=== PATIENT | female | born 2000 | race Caucasian/White ===

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

== ENCOUNTER 2022-07-24 23:28 | Emergency (ER) | payer OTHER ==
[2022-07-24] MEDS ORDERED: KETOROLAC 15 MG/ML VIAL IVP STA (23:41)
[2022-07-24] MEDS ORDERED: NS IV 1000 ML 1,000 ML IV STA (23:41)
[2022-07-24 23:50] LABS: CLARITY,URINE CLOUDY; GLUCOSE, URINE (UA) NEGATIVE (NEGATIVE); KETONES,URINE TRACE (NEGATIVE); LEUKOCYTE ESTERASE ,URINE 1+ (NEGATIVE); NITRITE,URINE NEGATIVE (NEGATIVE); PH,URINE 6.5 (5-9); PROTEIN,URINE 1+ (NEGATIVE)
--- NOTE | 2022-07-24 23:50 | ED Abdominal Pain ---
General Chief Complaint: Abdominal/GI Problems Stated Complaint: ABD PAIN Nursing Triage Note: COMPLAINT OF LOWER ABDOMINAL PAIN FOR THE LAST 4-5 DAYS. PATIENT STATES TREATED WITH MACROBID FOR UTI DIAGNOSED 2 DAYS AGO. Source of Information: Patient History of Present Illness Date Seen by Provider: Jul 24, 2022 Time Seen by Provider: 23:31 Initial Comments 21-year-old female presenting with complaints of suprapubic abdominal pain. She states for the last 4 to 5 days she has been having pain in was seen in the clinic on Friday and was diagnosed with a UTI. She started Macrobid yesterday July 23 for her UTI. She felt like the pain was a little worse this evening so she came to the emergency department. She states that she spoke with her mother and her mom wanted her to be seen and have a CT scan looking at her abdomen and pelvis. She states that her last menstrual cycle finished last week but she had some spotting today. She denies nausea, vomiting, fever, chills, abdominal trauma, chest pain, cough, diarrhea. She states she has had some constipation but was taking MiraLAX and that was helping her go some. She denies any allergies to medications. She also denies any previous abdominal surgeries. She states that she does not have any chronic medical problems. Timing/Duration: 4-5 Days (Worse in the last 2 to 3 days and felt that it was more severe tonight) Severity/Quality: Moderate (7 out of 10), Cramping, Sharp Location: Suprapubic Radiation: No Radiation Activities at Onset: None Modifying Factors: Worsens With Movement, Worsens With Palpation Associated Symptoms: No Back Pain, No Chest Pain, No Diaphoresis, No Fever/Chills, No Fatigue, No Headache, No Heartburn, No Nausea/Vomiting, No Rash, No Shortness of Air, No Swelling/Mass in Abdomen, No Syncope, No Weakness Allergies and Home Medications Allergies Coded Allergies: No Known Allergies (Verified Allergy, Unknown, 03/27/21) Patient Home Medication List Home Medication List Reviewed: Yes Metronidazole (Metronidazole) 500 Mg Tablet, 500 MG PO BID Prescribed by: MAURICIO BELTRAN on 07/25/2258 Phenazopyridine HCl (Pyridium) 100 Mg Tablet, 100 MG PO TID Prescribed by: MAURICIO BELTRAN on 07/25/2258 Review of Systems Review of Systems Constitutional: No chills, No fever EENTM: No Symptoms Reported Respiratory: No Symptoms Reported Cardiovascular: No Symptoms Reported Gastrointestinal: See HPI Genitourinary: See HPI Musculoskeletal: no symptoms reported Skin: no symptoms reported Psychiatric/Neurological: Anxiety Past Woabvcq-Ulzfxy-Hrjnoh Hx Past Medical History Surgeries: No Physical Exam Vital Signs Vital Signs - First Documented 07/24/22 23:30 Temp 37.2 Pulse 69 Resp 20 B/P (MAP) 138/86 (103) Pulse Ox 93 O2 Delivery Room Air Capillary Refill : Less Than 3 Seconds Height/Weight/BMI Height: '" Weight: lbs. oz. kg; 21.00 BMI Method: General Appearance: mild distress (Patient appears anxious), thin HEENT: PERRL/EOMI, pharynx normal Neck: non-tender, full range of motion, supple, normal inspection Respiratory: chest non-tender, lungs clear, normal breath sounds, no respiratory distress, no accessory muscle use Cardiovascular: normal peripheral pulses, regular rate, rhythm Gastrointestinal: normal bowel sounds, soft, no pulsatile mass; No distended, No guarding, No rebound; tenderness (Suprapubic tenderness) Rectal: deferred Extremities: normal range of motion, non-tender, normal capillary refill Neurologic/Psychiatric: alert, oriented x 3, other (Anxious) Skin: normal color, warm/dry Progress/Results/Core Measures Results/Orders Lab Results Laboratory Tests Test 07/24/22 23:34 07/24/22 23:42 Range/Units Urine Color REGINA H Urine Clarity CLOUDY Urine pH 6.5 5-9 Urine Specific [place] 1.025 H 1.016-1.022 Urine Protein 1+ H NEGATIVE Urine Glucose (UA) NEGATIVE NEGATIVE Urine Ketones TRACE H NEGATIVE Urine Nitrite NEGATIVE NEGATIVE Urine Bilirubin 1+ H NEGATIVE Urine Urobilinogen 2.0 < = 1.0 MG/DL Urine Leukocyte Esterase 1+ H NEGATIVE Urine RBC (Auto) 3+ H NEGATIVE Urine RBC 2-5 H /HPF Urine WBC 10-25 H /HPF Urine Squamous Epithelial Cells 2-5 /HPF Urine Renal Epithelial Cells RARE /HPF Urine Crystals NONE /LPF Urine Bacteria FEW H /HPF Urine Casts NONE /LPF Urine Mucus LARGE H /LPF Urine Other FEW CLUE CELLS /HPF Urine Culture Indicated YES Urine Opiates Screen NEGATIVE NEGATIVE Urine Oxycodone Screen NEGATIVE NEGATIVE Urine Methadone Screen NEGATIVE NEGATIVE Urine Propoxyphene Screen NEGATIVE NEGATIVE Urine Barbiturates Screen NEGATIVE NEGATIVE Ur Tricyclic Antidepressants Screen NEGATIVE NEGATIVE Urine Phencyclidine Screen NEGATIVE NEGATIVE Urine Amphetamines Screen NEGATIVE NEGATIVE Urine Methamphetamines Screen NEGATIVE NEGATIVE Urine Benzodiazepines Screen NEGATIVE NEGATIVE Urine Cocaine Screen NEGATIVE NEGATIVE Urine Cannabinoids Screen NEGATIVE NEGATIVE White Blood Count 8.0 4.3-11.0 10^3/uL Red Blood Count 4.78 3.80-5.11 10^6/uL Hemoglobin 14.1 11.5-16.0 g/dL Hematocrit 41 35-52 % Mean Corpuscular Volume 86 80-99 fL Mean Corpuscular Hemoglobin 30 25-34 pg Mean Corpuscular Hemoglobin Concent 34 32-36 g/dL Red Cell Distribution Width 11.8 10.0-14.5 % Platelet Count 215 130-400 10^3/uL Mean Platelet Volume 11.5 9.0-12.2 fL Immature Granulocyte % (Auto) 0 % Neutrophils (%) (Auto) 51 42-75 % Lymphocytes (%) (Auto) 34 12-44 % Monocytes (%) (Auto) 8 0-12 % Eosinophils (%) (Auto) 7 0-10 % Basophils (%) (Auto) 1 0-10 % Neutrophils # (Auto) 4.0 1.8-7.8 10^3/uL Lymphocytes # (Auto) 2.7 1.0-4.0 10^3/uL Monocytes # (Auto) 0.6 0.0-1.0 10^3/uL Eosinophils # (Auto) 0.6 H 0.0-0.3 10^3/uL Basophils # (Auto) 0.0 0.0-0.1 10^3/uL Immature Granulocyte # (Auto) 0.0 0.0-0.1 10^3/uL Sodium Level 136 135-145 MMOL/L Potassium Level 3.3 L 3.6-5.0 MMOL/L Chloride Level 100 98-107 MMOL/L Carbon Dioxide Level 26 21-32 MMOL/L Anion Gap 10 5-14 MMOL/L Blood Urea Nitrogen 8 7-18 MG/DL Creatinine 0.71 0.60-1.30 MG/DL Estimat Glomerular Filtration Rate 126 BUN/Creatinine Ratio 11 Glucose Level 90 70-105 MG/DL Calcium Level 9.6 8.5-10.1 MG/DL Corrected Calcium 8.5-10.1 MG/DL Total Bilirubin 0.6 0.1-1.0 MG/DL Aspartate Amino Transf (AST/SGOT) 15 5-34 U/L Alanine Aminotransferase (ALT/SGPT) 16 0-55 U/L Alkaline Phosphatase 77 40-136 U/L Total Protein 7.9 6.4-8.2 GM/DL Albumin 4.6 H 3.2-4.5 GM/DL Lipase 36 8-78 U/L My Orders Orders - MAURICIO BELTRAN MD Ua Culture If Indicated (07/24/22 23:30) Urine Bedside (07/24/22 23:30) Drug Screen Stat (Urine) (07/24/22:30) Comprehensive Metabolic Panel (07/24/22 23:41) Lipase (07/24/22 23:41) Ed Iv/Invasive Line Start (07/24/22 23:41) Cbc With Automated Diff (07/24/22 23:41) Ct Abdomen/Pelvis W (07/24/22 23:41) Ns Iv 1000 Ml (Sodium Chloride 0.9%) (07/24/22 23:41) Ketorolac Injection (Toradol Injection) (07/24/22 23:41) Iohexol Injection (Omnipaque 300 Mg/Ml 1 (07/25/22 00:00) Di Iv Start (Assessment) .IV start (07/24/22 23:46) Received Contrast (Hold Metformin- Contr (07/25/22 00:00) Ns (Ivpb) (Sodium Chloride 0.9% Ivpb Bag (07/25/22 00:00) Urine Culture (07/24/22 23:34) Ceftriaxone 1 Gm Pre-Mix (Rocephin 1 Gm (07/25/22 00:45) Phenazopyridine Tablet (Pyridium Tablet) (07/25/22 00:45) Metronidazole Tablet (Flagyl Tablet) (07/25/22 00:45) Medications Given in ED Current Medications Medications Dose Ordered Sig/Niraj Route Start Time Stop Time Status Last Admin Dose Admin Iohexol 75 ml ONCE ONCE IV 07/25/22 00:00 07/25/22 00:01 DC 07/24/22 23:52 75 ML Sodium Chloride 100 ml ONCE ONCE IV 07/25/22 00:00 07/25/22 00:01 DC 07/24/22 23:52 100 ML Vital Signs/I&O 07/24/22 23:30 Temp 37.2 Pulse 69 Resp 20 B/P (MAP) 138/86 (103) Pulse Ox 93 O2 Delivery Room Air Blood Pressure Mean: 103 Progress Progress Note #1: Progress Note Potential diagnosis of cystitis, pyelonephritis, colitis, diverticulitis, ovarian cyst, ruptured ovarian cyst, ovarian torsion, appendicitis. Obtain urine and test for bedside as well as urinalysis looking for infection and urine drug screen looking for medicines were illicit substances that she might be using the might contribute to her complaint of pain and constipation. Obtain peripheral IV access and send blood work for complete blood count, comprehensive metabolic profile, lipase. Order CT scan of the abdomen and pelvis with IV contrast to further evaluate her complaints of suprapubic pain. Administer normal saline 1 L IV fluid bolus for hydration, Toradol 15 mg IV for pain and inflammation. She might require narcotic pain medicine and she is occasionally complaining of more severe stabbing pain. Progress Note #2: Progress Note Complete blood count does not show any elevation of her white blood cells to indicate a severe infection. Her white blood cell count was 8. She was not showing anemia as her hemoglobin was 14.1. Her urinalysis was still a little concentrated to go along with some dehydration and she had specific gravity of 1.025. She still have 1+ leukocyte esterase with 10-25 white blood cells and bacteria. She also had some clue cells seen on the urinalysis. This would indicate bacterial vaginosis. Her comprehensive metabolic profile did not show any acute significant abnormality to indicate renal failure electrolyte imbalance or liver failure. On my personal interpretation and review of her CT scan of the abdomen and pelvis with IV contrast I did not appreciate any acute obstruction, free air, kidney stone. Progress Note #3: Progress Note I reviewed the radiologist report at 00 19. Radiologist with the [facility] did not see acute surgical findings on CT scan of abdomen/pelvis with IV contrast. Patient had thickened urinary bladder consistent with cystitis. She did have possible thickening of moreno of descending colon, sigmoid colon and rectum but may just be due to under distention. When reviewing results with the patient she states that her pain was completely gone with treatment here in the ED. She was advised that she still needed to finish out the antibiotics to treat for the urinary tract infection and cystitis. We will add on metronidazole or Flagyl to treat for bacterial vaginosis. Also prescribed Pyridium 100 mg p.o. 3 times daily x2 days to help with bladder pain and spasms. Encourage fluids and hydration. Counseled to avoid alcohol while taking the metronidazole to avoid side effects and making herself sick. Counseled on follow-up and return precautions. Advised she could still take cazb-[id number] ibuprofen 600 mg every 6-8 hours as needed for pain and inflammation. Alternatively she could take Aleve or naproxen 2 pills twice a day for pain and inflammation. She could still take acetaminophen 650 mg p.o. every 6 hours as needed pain as it works differently than the anti-inflammatory medicines. Diagnostic Imaging Diagonstic Imaging: CT Plain Films/CT/US/NM/MRI: abdomen, pelvis Comments CT scan of the abdomen pelvis with IV contrast. Impression: There may be thickening of the wall of the bladder. This can be seen with cystitis. There may be thickening of the moreno of the descending colon, sigmoid colon, and rectum. This may be due to underdistention. Cannot exclude a nonspecific colitis. Read by radiologist Dr. Abdiel Hilario MD at 0010 and faxed at 0017 Reviewed: [facility], Reviewed by Me (I reviewed the radiologist report at 0019) Departure Impression Primary Impression: Suprapubic pain, acute Additional Impressions: Acute cystitis with hematuria Bacterial vaginosis Disposition: HOME, SELF-CARE Condition: Improved Departure-Patient Inst. Decision time for Depature: 00:55 Referrals: NO,LOCAL PHYSICIAN (PCP) Primary Care Physician [facility] Patient Instructions: Bacterial Vaginosis ED, Urinary Tract Infection, Adult ED Add. Discharge Instructions: Stay well-hydrated and drink plenty of fluids. Finish out the course of antibiotics to treat for the bladder infection. Also take the Flagyl or metronidazole antibiotic for the next 7 days to treat for the bacterial overgrowth or bacterial vaginosis. The Pyridium is a prescription medicine similar to Azo pkmb-szu-[id number]. You could take the Pyridium as prescribed for the next 2 days to try and help with bladder pain while the antibiotics are kicking in. Alternatively you could take [id number]-[id number] Azo to help with those symptoms. Avoid any alcohol use while taking the Flagyl or metronidazole as alcohol will interact with the antibiotic and make you had nausea and vomiting and be sick. Follow-up with the clinic for continued pain and concerns. You could continue to take ibuprofen 600 mg or 3 jmrl-pri-wqdwivo 200 mg pills every 6-8 hours as needed for pain and inflammation. Alternatively you can take naproxen or Aleve 2 pills twice a day to help with your pain. You may also take acetaminophen 650 mg every 6 hours as needed for pain. All discharge instructions reviewed with patient and/or family. Voiced understanding. Scripts Metronidazole (Metronidazole) 500 Mg Tablet 500 MG PO BID for Bacterial Vaginosis for 7 Days, #14 TAB 0 Refills Prov: MAURICIO BELTRAN MD 07/25/22 Phenazopyridine HCl (Pyridium) 100 Mg Tablet 100 MG PO TID for Bladder pain for 2 Days, #6 TAB 0 Refills Prov: MAURICIO BELTRAN MD 07/25/22 Work/School Note: School/Childcare Release Date Seen in the Emergency Department: Jul 25, 2022 Time Dismissed from Emergency Department: 01:00 Return to School: Jul 29, 2022 Restrictions: Return-No Fever (24hrs), Return-No Vomiting(24hrs) MAURICIO BELTRAN MD Jul 24, 2022 23:50
[2022-07-24 23:59] LABS: BASOPHILS % (AUTO) 1 % (0-10); EOSINOPHILS # (AUTO) 0.6 10^3/uL (0.0-0.3); EOSINOPHILS % (AUTO) 7 % (0-10); HEMATOCRIT 41 % (35-52); HEMOGLOBIN 14.1 g/dL (11.5-16.0); LYMPHOCYTES # (AUTO) 2.7 10^3/uL (1.0-4.0); LYMPHOCYTES % (AUTO) 34 % (12-44); MEAN CORPUSCULAR HEMOGLOBIN 30 pg (25-34); MEAN CORPUSCULAR HGB CONC 34 g/dL (32-36); MEAN CORPUSCULAR VOLUME 86 fL (80-99); MEAN PLATELET VOLUME 11.5 fL (9.0-12.2); MONOCYTES # (AUTO) 0.6 10^3/uL (0.0-1.0); MONOCYTES % (AUTO) 8 % (0-12); NEUTROPHILS % (AUTO) 51 % (42-75); PLATELET COUNT 215 10^3/uL (130-400)
[2022-07-25] MEDS ORDERED: IOHEXOL 300 MG/ML 100 ML (OMNIPAQUE 300) VIAL IV ONE
[2022-07-25] MEDS ORDERED: NS 100 ML (IVPB) BAG IV ONE
[2022-07-25] MEDS ORDERED: HOLD METFORMIN - RECEIVED CONTRAST 20 ML VIAL IV SCH
[2022-07-25 00:09] LABS: BILIRUBIN,URINE 1+ (NEGATIVE); COLOR,URINE AMBER
[2022-07-25 00:10] LABS: BACTERIA,URINE FEW /HPF; RENAL EPITHELIAL CELLS,URINE RARE /HPF
[2022-07-25 00:11] LABS: URINE OTHER FEW CLUE CELLS /HPF
[2022-07-25 00:25] LABS: BENZODIAZEPINES SCREEN URINE NEGATIVE (NEGATIVE); COCAINE SCREEN URINE NEGATIVE (NEGATIVE)
[2022-07-25 00:26] LABS: AMPHETAMINE SCREEN, URINE NEGATIVE (NEGATIVE); BARBITURATE SCREEN URINE NEGATIVE (NEGATIVE); CANNABINOID SCREEN, URINE NEGATIVE (NEGATIVE); METHADONE STAT NEGATIVE (NEGATIVE); OPIATE SCREEN URINE NEGATIVE (NEGATIVE); OXYCODONE STAT NEGATIVE (NEGATIVE); PROPOXYPHENE STAT NEGATIVE (NEGATIVE); TRICYCLIC ANTIDEPRESSANTS SCRE NEGATIVE (NEGATIVE)
[2022-07-25 00:31] LABS: ALKALINE PHOSPHATASE 77 U/L (40-136); BILIRUBIN,TOTAL 0.6 MG/DL (0.1-1.0); BUN/CREATININE RATIO 11; CALCIUM 9.6 MG/DL (8.5-10.1); CARBON DIOXIDE 26 MMOL/L (21-32); CHLORIDE 100 MMOL/L (98-107); CREATININE SERUM 0.71 MG/DL (0.60-1.30); GFR ESTIMATED 126; GLUCOSE 90 MG/DL (70-105); POTASSIUM 3.3 MMOL/L (3.6-5.0); SODIUM 136 MMOL/L (135-145)
[2022-07-25 00:32] LABS: ALANINE AMINOTRANSFERASE 16 U/L (0-55); ALBUMIN 4.6 GM/DL (3.2-4.5); LIPASE 36 U/L (8-78); TOTAL PROTEIN 7.9 GM/DL (6.4-8.2)
[2022-07-25] MEDS ORDERED: metroNIDAZOLE 500 MG (FLAGYL) TAB PO STA (00:45)
[2022-07-25] MEDS ORDERED: PHENAZOPYRIDINE 100 MG (PYRIDIUM) TABLET PO STA (00:45)
[2022-07-25] MEDS ORDERED: cefTRIAXone 1 GM PRE-MIX 50 ML IV STA (00:45)
[2022-07-25] MEDS ORDERED: PHEN-639 PO (00:59)
[2022-07-25] MEDS ORDERED: METR-145 PO (00:59)
[2022-07-25 01:04] VITALS: BP 138/86
--- NOTE | 2022-07-25 06:42 | Diagnostic Imaging Report ---
PROCEDURE: CT abdomen and pelvis with contrast. TECHNIQUE: Multiple contiguous axial images were obtained through the abdomen and pelvis after administration of intravenous contrast. Auto Exposure Controls were utilized during the CT exam to meet ALARA standards for radiation dose reduction. All CT scans use one or more of the following dose optimizing techniques: automated exposure control, MA and/or KvP adjustment based on patient size and exam type or iterative reconstruction. INDICATION: 21-year-old female presents with suprapubic pain which has been worsening over 2-3 days. Patient is diagnosed with UTI. COMPARISONS: None FINDINGS: Lung bases are clear. Cardiac contour is normal. Liver shows uniform attenuation. Gallbladder, spleen, GE junction, stomach and duodenal sweep are unremarkable. Pancreas shows sharp margins. Adrenals are normal. Kidneys appear normal in size, position, and contour. There is symmetrical perfusion of contrast. There is no hydronephrosis or hydroureter. Both ureters are seen intermittently through their course and appear unremarkable. Bladder is nondistended. Bladder wall is prominent, may be due to nondistention, however, an element of cystitis given the clinical history is not excluded. Uterus and adnexa appear age appropriate. There is bilateral reactive inguinal lymphadenopathy. The largest node is in the left inguinal region measuring approximately 1.5 cm. Nonopacified loops of small bowel are normal. Large bowel contains fecal material and gas but is mostly decompressed. Appendix is unremarkable. Visualized vasculature shows normal caliber of the aorta, iliac and femoral arteries with normal origin of the visceral arteries. There are few scattered tiny mesenteric nodes but no evidence of adenopathy or adenitis. Bone windows show no overall gross abnormalities. IMPRESSION: 1. No evidence of cholecystitis, appendicitis or obstructive uropathy. No areas of peritoneal inflammation seen. 2. Inguinal lymphadenopathy most likely reactive in nature. 3. Nondistended bladder. The bladder wall is prominent and is most likely due to nondistention, however, in the appropriate clinical setting, cystitis is not entirely excluded, correlate clinically. Additional nonemergent findings as described above. Dictated by: Dictated on workstation # [id number]
[2022-07-25] MEDS ORDERED: NAPR-1071 PO (21:16)
[2022-07-25] MEDS ORDERED: ONDA4TAB11 PO (21:16)
== END 2022-07-25 01:12 | disposition home or self-care (01) ==
LOC: EDUNIT# 23:28 → ER FS 23:29
DX: N30.01 Acute cystitis with hematuria (principal); N76.0 Acute vaginitis; Z28.310 Unvaccinated for COVID-19
CPT/HCPCS: 36415; 74177; 80053; 80306; 81000; 83690; 84703; 85025; 87088; 96361; 96374; 96375; 99283

== ENCOUNTER 2022-07-25 20:34 | Emergency (ER) | payer OTHER ==
[~2022-07-25] VITALS: Ht 179.8 cm; Wt 66.6 kg
[~2022-07-25 20:34] MED LIST: METR-145 PO; PHEN-639 PO
--- NOTE | 2022-07-25 20:48 | ED GI ---
General Stated Complaint: ABD PAIN History of Present Illness Date Seen by Provider: Jul 25, 2022 Time Seen by Provider: 20:43 Initial Comments 21-year-old female presents with suprapubic pain. Patient was seen here last night for the exact same thing. She had an extensive work-up including CT abdomen and pelvis. She was diagnosed with questionable acute cystitis with hematuria along with BV. Patient reports that the pain continued today and she has had some nausea vomiting with it. This exact same pain she had last night. She was given Toradol last night with significant improvement in her symptoms. Patient reports that she filled her prescription has been taking as directed. Allergies and Home Medications Allergies Coded Allergies: No Known Allergies (Verified Allergy, Unknown, 03/27/21) Patient Home Medication List Home Medication List Reviewed: Yes Metronidazole (Metronidazole) 500 Mg Tablet, 500 MG PO BID Prescribed by: MAURICIO BELTRAN on 07/25/2258 Naproxen (Naprosyn) 500 Mg Tablet, 500 MG PO BID Prescribed by: OSWALD SPAULDING on 07/25/222115 Ondansetron (Ondansetron Odt) 4 Mg Tab.rapdis, 4 MG PO Q6H PRN for NAUSEA/VOMITING Prescribed by: OSWALD SPAULDING on 07/25/222115 Phenazopyridine HCl (Pyridium) 100 Mg Tablet, 100 MG PO TID Prescribed by: MAURICIO BELTRAN on 07/25/2258 Review of Systems Review of Systems Constitutional: see HPI Respiratory: No Symptoms Reported Cardiovascular: No Symptoms Reported Gastrointestinal: Abdominal Pain Genitourinary: See HPI Musculoskeletal: no symptoms reported Skin: no symptoms reported Psychiatric/Neurological: No Symptoms Reported Past Afdvsoe-Rwtkhe-Rdtndv Hx Immunizations Up To Date First/Initial COVID19 Vaccinat: na Second COVID19 Vaccination [place]: na Past Medical History Surgeries: No Physical Exam Vital Signs Vital Signs - First Documented 07/25/22 20:38 Temp 36.7 Pulse 101 Resp 16 B/P (MAP) 132/96 (108) Pulse Ox 98 O2 Delivery Room Air Capillary Refill : Height/Weight/BMI Height: '" Weight: lbs. oz. kg; 21.00 BMI Method: General Appearance: mild distress Respiratory: lungs clear, normal breath sounds Cardiovascular: normal peripheral pulses, regular rate, rhythm Gastrointestinal: tenderness (Suprapubic) Extremities: normal range of motion Neurologic/Psychiatric: alert, normal mood/affect, oriented x 3 Skin: normal color, warm/dry Progress/Results/Core Measures Results/Orders My Orders Orders - OSWALD SPAULDING DO Metoclopramide Injection (Reglan Injecti (07/25/22 20:49) Ns Iv 1000 Ml (Sodium Chloride 0.9%) (07/25/22 20:49) Ketorolac Injection (Toradol Injection) (07/25/22 20:49) Vital Signs/I&O 07/25/22 20:38 Temp 36.7 Pulse 101 Resp 16 B/P (MAP) 132/96 (108) Pulse Ox 98 O2 Delivery Room Air Progress Progress Note : Progress Note pt pain resolved with treatment. Patient had not taken anything but Pyridium. We discussed with her the need to use Tylenol ibuprofen for pain management. I will discharge her with a prescription for naproxen and Zofran. She can also use Tylenol in addition to that. Patient stable and discharged home. No additional work-up was indicated as she had a significant work-up yesterday and is being treated appropriately. I did review notes, CT results and labs from yesterday. Departure Impression Primary Impression: Acute cystitis with hematuria Additional Impression: Bacterial vaginosis Disposition: HOME, SELF-CARE Condition: Stable Departure-Patient Inst. Referrals: NO,LOCAL PHYSICIAN (PCP/Family) Primary Care Physician Patient Instructions: Bacterial Vaginosis ED Add. Discharge Instructions: You may take 1000 mg Tylenol every 8 hours in addition to the naproxen twice daily. Please take your already prescribed medications as directed. You may use Pyridium to help with spasm. Scripts Ondansetron (Ondansetron Odt) 4 Mg Tab.rapdis 4 MG PO Q6H PRN for NAUSEA/VOMITING, #20 TAB 0 Refills Prov: SPAULDINGTRISTAR Noe DO 07/25/22 Naproxen (Naprosyn) 500 Mg Tablet 500 MG PO BID, #30 TAB 0 Refills Prov: TRISTA SPAULDINGR L DO 07/25/22 SPAULDINGTRISTAZac Liu DO Jul 25, 2022 20:48
[2022-07-25] MEDS ORDERED: METOCLOPRAMIDE INJ 10 MG/2 ML (REGLAN) IVP STA (20:49)
[2022-07-25] MEDS ORDERED: NS IV 1000 ML 1,000 ML IV STA (20:49)
[2022-07-25] MEDS ORDERED: KETOROLAC 30 MG/ML VIAL IVP STA (20:49)
[2022-07-25] MEDS ORDERED: NAPR-1071 PO (21:16)
[2022-07-25] MEDS ORDERED: ONDA4TAB11 PO (21:16)
[2022-07-25 21:54] VITALS: BP 132/96
== END 2022-07-25 21:55 | disposition home or self-care (01) ==
LOC: EDUNIT# 20:34 → ER FS 20:35
DX: N30.01 Acute cystitis with hematuria (principal); N76.0 Acute vaginitis; Z28.310 Unvaccinated for COVID-19